=== PATIENT | male | born 1950 | race Two or more races ===

== ENCOUNTER 2024-01-02 06:13 | Day surgery (SDC) | payer OTHER ==
[~2024-01-02] VITALS: Ht 165.1 cm; Wt 88.2 kg
[2024-01-02] MEDS ORDERED: SODIUM CHLORIDE 0.9% 1,000 ML ONE (06:54)
[2024-01-02] MEDS ORDERED: FentaNYL CITRATE PF 100 MCG/2 ML VIAL ONE (07:22)
[2024-01-02] MEDS ORDERED: MIDAZOLAM HCL 2 MG/2 ML VIAL ONE (07:22)
[2024-01-02 07:36] LABS: GLUCOMETER DEV NAME(LOC) SDS.; GLUCOSE,POINT OF CARE 119 MG/DL (70-110)
[2024-01-02] MEDS: SODIUM CHLORIDE 0.9% 1,000 ML IV ONE (08:04)
[2024-01-02 09:15] VITALS: PULSE 70; RESP 16; O2SAT 95
[2024-01-02] MEDS ORDERED: AMLO-257 PO (09:21)
[2024-01-02] MEDS ORDERED: CARV6 PO (09:21)
[2024-01-02] MEDS ORDERED: BACL10TA PO (09:21)
[2024-01-02] MEDS ORDERED: MELA3TAB89 PO (09:21)
[2024-01-02] MEDS ORDERED: TAMS0.4C94 PO (09:21)
[2024-01-02] MEDS ORDERED: PIOG30TA10 PO (09:21)
[2024-01-02] MEDS ORDERED: OMEP20 PO (09:21)
[2024-01-02] MEDS ORDERED: DULO-114 PO (09:21)
[2024-01-02] MEDS ORDERED: FAMO20 PO (09:21)
[2024-01-02] MEDS ORDERED: DAPA10TA PO (09:21)
[2024-01-02] MEDS ORDERED: MethylPREDNISolone SOD SUCC 125 MG/2 ML VIAL ONE (09:21)
[2024-01-02] MEDS ORDERED: CHOL200059 PO (09:21)
[2024-01-02] MEDS ORDERED: MONT-35 PO (09:21)
[2024-01-02] MEDS: MethylPREDNISolone SOD SUCC 125 MG/2 ML VIAL IVP ONE (10:01)
[2024-01-02] MEDS ORDERED: LIDOCAINE 2% 11 ML JELLY ONE (12:00)
[2024-01-02] MEDS ORDERED: BENZOCAINE 20% 50 MCG/SPRAY 57 GM ONE (12:00)
[2024-01-02] MEDS ORDERED: ALBUTEROL SULFATE 2.5 MG/0.5 ML NEB SOLUTION NEB ONE (12:00)
[2024-01-02] MEDS ORDERED: LIDOCAINE 4% 50 ML SOLUTION ONE (12:00)
== END 2024-01-02 11:30 | disposition home or self-care (01) ==
LOC: SURGERY 06:13
PROVIDERS: ATTEND Internal Medicine Critical Care Medicine
DX: R05.3 Chronic cough (principal); J38.4 Edema of larynx; B37.0 Candidal stomatitis; R04.2 Hemoptysis; J98.09 Other diseases of bronchus, not elsewhere classified; J98.8 Other specified respiratory disorders; J84.10 Pulmonary fibrosis, unspecified; J98.11 Atelectasis; K46.9 Unspecified abdominal hernia without obstruction or gangrene; M19.90 Unspecified osteoarthritis, unspecified site; M54.2 Cervicalgia; E78.00 Pure hypercholesterolemia, unspecified; E11.9 Type 2 diabetes mellitus without complications; M47.814 Spondylosis without myelopathy or radiculopathy, thoracic region; Z85.21 Personal history of malignant neoplasm of larynx; Z87.891 Personal history of nicotine dependence
CPT/HCPCS: 82962; 87206; 87101; 87220; 87070; 88108; 31623; 31624; 94640; 71045; 87015; J3010; J2250; J2919; Q9967; J7030; J7613; Z7610